=== PATIENT | female | born 2000 | race Native Hawaiian/Other Pacific Islander ===

== ENCOUNTER 2022-02-18 13:08 | Emergency (ER) | payer MEDICAID, OTHER ==
[~2022-02-18] VITALS: Ht 165.1 cm; Wt 52.5 kg
[2022-02-18] MEDS ORDERED: ONDA4TAB11 PO (13:32)
--- NOTE | 2022-02-18 13:32 | ED General ---
General Chief Complaint: General Problems/Pain Stated Complaint: VOMITING Source of Information: Patient Exam Limitations: No Limitations History of Present Illness Date Seen by Provider: Feb 18, 2022 Time Seen by Provider: 13:22 Initial Comments Patient is a 21-year-old female who presents to the emergency department today with a chief complaint of nausea for 2 weeks with 1 episode of vomiting. Patient states "I am pretty sure I missed my period". She states that her last menstrual cycle was at the "beginning of January", she does not keep up with them. She denies dysuria urgency or frequency. No abnormal vaginal discharge. She has already had 1 child she states. She denies headache or breast tenderness. No abdominal pain associated with the vomiting. She has been taking one half of a 4 mg Zofran once a day which has not been relieving her symptoms. No other complaints of illness or injury. Timing/Duration: Other Severity: Mild (2 weeks) Associated Systoms: Nausea/Vomiting Allergies and Home Medications Patient Home Medication List Home Medication List Reviewed: Yes Ondansetron (Ondansetron Odt) 4 Mg Tab.rapdis, 4 MG PO Q8H PRN for NAUSEA/VOMITING Prescribed by: BRISA VALLEJO on 02/18/22 3092 Review of Systems Review of Systems Constitutional: see HPI EENTM: no symptoms reported Respiratory: no symptoms reported Cardiovascular: no symptoms reported Gastrointestinal: nausea, vomiting Genitourinary: no symptoms reported Musculoskeletal: no symptoms reported Skin: no symptoms reported All Other Systems Reviewed Negative Unless Noted: Yes Past Cpldtzb-Ptbpfw-Rfsxbb Hx Patient Social History Tobacco Use?: No Use of E-Cig and/or Vaping dev: Yes E-Cig or Vaping type used: Nicotine Use of E-Cig and/or Vaping Oscar: Light User Substance use?: Yes Substance type: Marijuana Substance frequency: Once in a while Alcohol Use?: No Pt feels they are or have been: No Immunizations Up To Date Influenza Vaccine Up-to-Date: No; Not Current Physical Exam Vital Signs Capillary Refill : Height, Weight, BMI Height: '" Weight: lbs. oz. kg; BMI Method: General Appearance: No Apparent Distress, WD/WN Eyes: Bilateral Eye Normal Inspection, Bilateral Eye PERRL, Bilateral Eye EOMI HEENT: Moist Mucous Membranes Neck: Normal Inspection Respiratory: Lungs Clear, Normal Breath Sounds, No Accessory Muscle Use, No Respiratory Distress Cardiovascular: Regular Rate, Rhythm Gastrointestinal: Non Tender, Soft Extremity: Normal Inspection, Normal Range of Motion Neurologic/Psychiatric: Alert, Oriented x3, No Motor/Sensory Deficits, Normal Mood/Affect, can carrier II-XII Norm as Tested Skin: Normal Color, Warm/Dry Progress/Results/Core Measures Suspected Sepsis SIRS Temperature: Pulse: Respiratory Rate: Blood Pressure / Mean: Results/Orders My Orders Orders - BRISA VALLEJO MD Urine Bedside (02/18/22 13:27) Vital Signs/I&O Capillary Refill : Progress Note : Time: 13:33 Progress Note Bedside test, POSITIVE. patient counselled on care. zofran for home. Departure Impression Primary Impression: Nausea & vomiting Qualified Codes: R11.2 - Nausea with vomiting, unspecified Additional Impression: Concern about unplanned without diagnosis Disposition: 01 HOME, SELF-CARE Condition: Stable Departure-Patient Inst. Decision time for Depature: 13:30 Referrals: [facility]/ALANNA MODI,LOCAL PHYSICIAN (PCP) Primary Care Physician Add. Discharge Instructions: Drink lots of fluids to stay well-hydrated. You can take Zofran, 1 tablet every 8 hours as needed for nausea. Follow-up with [facility]. Return to the emergency department for any new, concerning or emergent complaints. Scripts Ondansetron (Ondansetron Odt) 4 Mg Tab.rapdis 4 MG PO Q8H PRN for NAUSEA/VOMITING, #10 TAB 0 Refills Prov: BRISA VALLEJO MD 02/18/22 BRISA VALLEJO MD Feb 18, 2022 13:32
[2022-02-18 13:35] VITALS: BP 112/69
== END 2022-02-18 13:35 | disposition home or self-care (01) ==
LOC: ER 13:10
DX: R11.2 Nausea with vomiting, unspecified (principal); F17.290 Nicotine dependence, other tobacco product, uncomplicated; Z33.1 Pregnant state, incidental
CPT/HCPCS: 84703; 99282

== ENCOUNTER 2022-05-05 22:26 | Emergency (ER) | payer MEDICAID ==
[~2022-05-05 22:26] MED LIST: ONDA4TAB11 PO
[2022-05-05 23:01] LABS: BILIRUBIN,URINE NEGATIVE (NEGATIVE); CLARITY,URINE SL CLOUDY; COLOR,URINE YELLOW; GLUCOSE, URINE (UA) 2+ (NEGATIVE); KETONES,URINE NEGATIVE (NEGATIVE); LEUKOCYTE ESTERASE ,URINE 2+ (NEGATIVE); NITRITE,URINE NEGATIVE (NEGATIVE); PH,URINE 6.5 (5-9); PROTEIN,URINE NEGATIVE (NEGATIVE)
--- NOTE | 2022-05-05 23:09 | ED GU-Female ---
General Chief Complaint: OB < 20 WEEKS Stated Complaint: BACK PAIN - PAIN WITH URINATION - 18 WKS PREG Source: patient, other Exam Limitations: no limitations History of Present Illness Date Seen by Provider: May 05, 2022 Time Seen by Provider: 22:52 Initial Comments Patient to ER by private conveyance with a chief complaint that she was visiting her significant other and just few hours prior to arrival started experiencing some sharp pains upper left back and dysuria. No fevers chills nausea vomiting diarrhea or constipation. She is with an estimated date of confinement of 11/03/2022 putting her at 14 weeks and 0 days. Her OB provider is in [place], [place] where she is from. She has no significant medical or surgical history. She says she did have a significant hospitalization from pyelonephritis during her last . She is a G2, P1. Allergies and Home Medications Allergies Coded Allergies: No Known Drug Allergies (Unverified , 05/05/22) Patient Home Medication List Home Medication List Reviewed: Yes Cephalexin (Cephalexin) 500 Mg Tablet, 500 MG PO BID Prescribed by: BRYANNA VERDUZCO on 05/06/22 0130 Ondansetron (Ondansetron Odt) 4 Mg Tab.rapdis, 4 MG PO Q8H PRN for NAUSEA/VOMITING Prescribed by: BRISA VALLEJO on 02/18/22 1332 Review of Systems Review of Systems Constitutional: No chills, No diaphoresis EENTM: No ear discharge, No hearing loss, No ear pain Respiratory: No cough, No short of breath Cardiovascular: No edema, No Hx of Intervention Gastrointestinal: see HPI, abdominal pain; No constipation, No diarrhea; nausea; No vomiting Genitourinary: burning, dysuria; denies frequency; flank pain Musculoskeletal: No back pain, No joint pain All Other Systemes Reviewed Negative Unless Noted: Yes Past Aspsgux-Vhtvni-Sfezxi Hx Patient Social History Tobacco Use?: Yes E-Cig or Vaping type used: Nicotine Substance use?: No Alcohol Use?: No Physical Exam Vital Signs Vital Signs - First Documented 05/05/22 22:53 Temp 36.0 Pulse 98 Resp 16 B/P (MAP) 121/81 (94) Pulse Ox 98 O2 Delivery Room Air Capillary Refill : Less Than 3 Seconds Height, Weight, BMI Height: '" Weight: lbs. oz. kg; 19.00 BMI Method: General Appearance: WD/WN, no apparent distress HEENT: PERRL/EOMI, pharynx normal Neck: full range of motion, normal inspection Cardiovascular: normal peripheral pulses, regular rate, rhythm Respiratory: lungs clear, normal breath sounds, no respiratory distress, no accessory muscle use Gastrointestinal: normal bowel sounds, non tender, soft, other (No mesenteric signs. Nonsurgical abdominal exam.) Extremities: non-tender, normal inspection Neurologic/Psychiatric: alert, normal mood/affect, oriented x 3 Skin: normal color, warm/dry Progress/Results/Core Measures Suspected Sepsis SIRS Temperature: Pulse: 98 Respiratory Rate: 16 Laboratory Tests 05/06/22 00:33: White Blood Count 14.8H Blood Pressure 121 /81 Mean: 94 Laboratory Tests 05/06/22 00:33: Creatinine 0.55L, Platelet Count 290, Total Bilirubin 0.3 Results/Orders Lab Results Laboratory Tests Test 05/05/22 22:55 05/06/22 00:33 Range/Units Urine Color YELLOW Urine Clarity SL CLOUDY Urine pH 6.5 5-9 Urine Specific [place] 1.020 1.016-1.022 Urine Protein NEGATIVE NEGATIVE Urine Glucose (UA) 2+ H NEGATIVE Urine Ketones NEGATIVE NEGATIVE Urine Nitrite NEGATIVE NEGATIVE Urine Bilirubin NEGATIVE NEGATIVE Urine Urobilinogen 4.0 < = 1.0 MG/DL Urine Leukocyte Esterase 2+ H NEGATIVE Urine RBC (Auto) NEGATIVE NEGATIVE Urine RBC NONE /HPF Urine WBC 0-2 /HPF Urine Squamous Epithelial Cells 5-10 /HPF Urine Crystals NONE /LPF Urine Bacteria FEW H /HPF Urine Casts NONE /LPF Urine Mucus SMALL H /LPF Urine Culture Indicated YES White Blood Count 14.8 H 4.3-11.0 10^3/uL Red Blood Count 3.49 L 3.80-5.11 10^6/uL Hemoglobin 10.2 L 11.5-16.0 g/dL Hematocrit 31 L 35-52 % Mean Corpuscular Volume 88 80-99 fL Mean Corpuscular Hemoglobin 29 25-34 pg Mean Corpuscular Hemoglobin Concent 33 32-36 g/dL Red Cell Distribution Width 13.9 10.0-14.5 % Platelet Count 290 130-400 10^3/uL Mean Platelet Volume 10.2 9.0-12.2 fL Immature Granulocyte % (Auto) 1 % Neutrophils (%) (Auto) 75 42-75 % Lymphocytes (%) (Auto) 15 12-44 % Monocytes (%) (Auto) 8 0-12 % Eosinophils (%) (Auto) 1 0-10 % Basophils (%) (Auto) 0 0-10 % Neutrophils # (Auto) 11.1 H 1.8-7.8 10^3/uL Lymphocytes # (Auto) 2.2 1.0-4.0 10^3/uL Monocytes # (Auto) 1.2 H 0.0-1.0 10^3/uL Eosinophils # (Auto) 0.1 0.0-0.3 10^3/uL Basophils # (Auto) 0.0 0.0-0.1 10^3/uL Immature Granulocyte # (Auto) 0.2 H 0.0-0.1 10^3/uL Sodium Level 138 135-145 MMOL/L Potassium Level 3.7 3.6-5.0 MMOL/L Chloride Level 106 98-107 MMOL/L Carbon Dioxide Level 20 L 21-32 MMOL/L Anion Gap 12 5-14 MMOL/L Blood Urea Nitrogen 5 L 7-18 MG/DL Creatinine 0.55 L 0.60-1.30 MG/DL Estimat Glomerular Filtration Rate 134 BUN/Creatinine Ratio 9 Glucose Level 90 70-105 MG/DL Calcium Level 9.2 8.5-10.1 MG/DL Corrected Calcium 9.6 8.5-10.1 MG/DL Total Bilirubin 0.3 0.1-1.0 MG/DL Aspartate Amino Transf (AST/SGOT) 17 5-34 U/L Alanine Aminotransferase (ALT/SGPT) 11 0-55 U/L Alkaline Phosphatase 43 40-136 U/L C-Reactive Protein High Sensitivity 0.08 0.00-0.50 MG/DL Total Protein 6.5 6.4-8.2 GM/DL Albumin 3.5 3.2-4.5 GM/DL My Orders Orders - BRYANNA VERDUZCO Ua Culture If Indicated (05/05/22 22:27) Urine Culture (05/05/22 22:55) Acetaminophen Tablet (Tylenol Tablet) (05/06/22 00:15) Cbc With Automated Diff (05/06/22 00:14) Comprehensive Metabolic Panel (05/06/22 00:14) Hs C Reactive Protein (05/06/22 00:14) Cephalexin Capsule (Keflex Capsule) (05/06/22 01:30) Medications Given in ED Current Medications Medications Dose Ordered Sig/Pita Route Start Time Stop Time Status Last Admin Dose Admin Acetaminophen 1,000 mg ONCE ONCE PO 05/06/22 00:15 05/06/22 00:16 DC 05/06/22 01:42 1,000 MG Cephalexin HCl 500 mg ONCE ONCE PO 05/06/22 01:30 05/06/22 01:31 DC 05/06/22 01:41 500 MG Vital Signs/I&O 05/05/22 05/06/22 22:53 01:49 Temp 36.0 36.0 Pulse 98 77 Resp 16 16 B/P (MAP) 121/81 (94) 113/80 Pulse Ox 98 98 O2 Delivery Room Air Room Air Capillary Refill : Less Than 3 Seconds Progress Note : Time: 01:27 Progress Note Labs are largely unremarkable. Patient's urine does not look like a significant UTI but since she is having some dysuria we will put her on 5 days of Keflex and this should be safe. We discussed return precautions. We encouraged her to follow-up with her teacher lip reading in [place]. Departure Impression Primary Impression: Urinary tract infection Qualified Codes: N30.00 - Acute cystitis without hematuria Additional Impression: test positive Disposition: HOME, SELF-CARE Condition: Stable Departure-Patient Inst. Decision time for Depature: 01:29 Referrals: NO,LOCAL PHYSICIAN (PCP/Family) Primary Care Physician Patient Instructions: Urinary Tract Infection, Adult ED Add. Discharge Instructions: Cephalexin 1 capsule twice a day for 5 to 7 days until symptoms are gone. Follow-up with your teacher lip reading. All discharge instructions reviewed with patient and/or family. Voiced understanding. Scripts Cephalexin (Cephalexin) 500 Mg Tablet 500 MG PO BID for 7 Days, #14 TAB 0 Refills Prov: BRYANNA VERDUZCO 05/06/22 Work/School Note: Work Release Form Date Seen in the Emergency Department: May 06, 2022 Return to Work: May 07, 2022 Restrictions: No Restrictions BRYANNA VERDUZCO May 05, 2022 23:09
[2022-05-05 23:27] LABS: BACTERIA,URINE FEW /HPF; WBC,URINE 0-2 /HPF
[2022-05-06] MEDS ORDERED: ACETAMINOPHEN 500 MG TAB (TYLENOL) PO ONE (00:15)
[2022-05-06 00:37] LABS: BASOPHILS % (AUTO) 0 % (0-10); EOSINOPHILS # (AUTO) 0.1 10^3/uL (0.0-0.3); EOSINOPHILS % (AUTO) 1 % (0-10); HEMATOCRIT 31 % (35-52); HEMOGLOBIN 10.2 g/dL (11.5-16.0); LYMPHOCYTES # (AUTO) 2.2 10^3/uL (1.0-4.0); LYMPHOCYTES % (AUTO) 15 % (12-44); MEAN CORPUSCULAR HEMOGLOBIN 29 pg (25-34); MEAN CORPUSCULAR HGB CONC 33 g/dL (32-36); MEAN CORPUSCULAR VOLUME 88 fL (80-99); MEAN PLATELET VOLUME 10.2 fL (9.0-12.2); MONOCYTES # (AUTO) 1.2 10^3/uL (0.0-1.0); MONOCYTES % (AUTO) 8 % (0-12); NEUTROPHILS # (AUTO) 11.1 10^3/uL (1.8-7.8); NEUTROPHILS % (AUTO) 75 % (42-75); PLATELET COUNT 290 10^3/uL (130-400); WHITE BLOOD COUNT 14.8 10^3/uL (4.3-11.0)
[2022-05-06 00:50] LABS: ALBUMIN 3.5 GM/DL (3.2-4.5)
[2022-05-06 00:51] LABS: POTASSIUM 3.7 MMOL/L (3.6-5.0)
[2022-05-06 00:52] LABS: CALCIUM 9.2 MG/DL (8.5-10.1)
[2022-05-06 00:53] LABS: TOTAL PROTEIN 6.5 GM/DL (6.4-8.2)
[2022-05-06 00:55] LABS: BILIRUBIN,TOTAL 0.3 MG/DL (0.1-1.0)
[2022-05-06 00:57] LABS: CREATININE SERUM 0.55 MG/DL (0.60-1.30)
[2022-05-06] MEDS ORDERED: CEPH500T PO (01:30)
[2022-05-06] MEDS ORDERED: CEPHALEXIN 250 MG (KEFLEX) CAP PO ONE (01:30)
[2022-05-06 01:49] VITALS: BP 113/80
== END 2022-05-06 01:49 | disposition home or self-care (01) ==
LOC: EDUNIT# 22:26 → ER 22:27
DX: O23.42 Unspecified infection of urinary tract in pregnancy, second trimester (principal); Z28.310 Unvaccinated for COVID-19; Z3A.14 14 weeks gestation of pregnancy
CPT/HCPCS: 36415; 80053; 81000; 85025; 86141; 87088; 99283